=== PATIENT | male | born 1985 | race Caucasian/White ===

== ENCOUNTER 2019-09-27 23:11 | Emergency (ER) | payer MEDICAID ==
[~2019-09-27] VITALS: Ht 154.9 cm; Wt 148.5 kg
[2019-09-27 23:34] VITALS: BP 123/77
--- NOTE | 2019-09-28 01:12 | NUR ---
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 PT WANTED TO LEAVE. PT LWBS.
== END 2019-09-28 01:13 | disposition left against medical advice (07) ==
LOC: ED 09-28
DX: R10.9 Unspecified abdominal pain (principal); Z53.21 Procedure and treatment not carried out due to patient leaving prior to being seen by health care provider